=== PATIENT | male | born 1995 | race Caucasian/White ===

== ENCOUNTER 2021-04-05 15:50 | Emergency (ER) | payer OTHER ==
[~2021-04-05] VITALS: Ht 182.9 cm; Wt 104.3 kg
[2021-04-05 15:50] VITALS: BP 125/83
--- NOTE | 2021-04-05 15:50 | NUR ---
Patient assisted from [facility] onto bed 07.
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
--- NOTE | 2021-04-05 15:53 | NUR ---
RN evaluating patient at bedside
--- NOTE | 2021-04-05 16:14 | NUR ---
PER ERMD 12 LEAD WAS DONE ON PT AND CAME BACK NSR AT 99 HR.
--- NOTE | 2021-04-05 16:20 | NUR ---
Received verbal consent to contact Bj Nicholas (father) @ [phone]. Father contacted by mobile phone; patient on phone at this time
[2021-04-05 17:00] VITALS: BP 113/68
[2021-04-05] MEDS ORDERED: NALO4SPR NS (17:47)
--- NOTE | 2021-04-05 17:47 | NUR ---
PATIENT ROAD TESTED. PT WALKED NORMAL AND WELL BALANCED WITHOUT ASSIST. ER PA NOTIFIED.
--- NOTE | 2021-04-05 18:21 | NUR ---
Patient discharged with v/s stable. Written and verbal after care instructions given and explained. Patient alert, oriented and verbalized understanding of instructions. Ambulatory with steady gait. All questions addressed prior to discharge. ID band removed. Patient advised to follow up with PMD. Rx of NARCAN given. Patient educated on indication of medication including possible reaction and side effects. Opportunity to ask questions provided and answered.
== END 2021-04-05 18:21 | disposition home or self-care (01) ==
LOC: MED 15:50
DX: T40.1X2A Poisoning by heroin, intentional self-harm, initial encounter (principal); F15.20 Other stimulant dependence, uncomplicated; I10 Essential (primary) hypertension; F17.210 Nicotine dependence, cigarettes, uncomplicated; Z79.899 Other long term (current) drug therapy; Z91.030 Bee allergy status; Y92.89 Other specified places as the place of occurrence of the external cause
CPT/HCPCS: 93005; 99283